=== PATIENT | female | born 1950 | race Caucasian/White ===

== ENCOUNTER 2017-08-02 06:17 | Day surgery (SDC) | payer OTHER ==
[2017-08-02 07:03] VITALS: BMI 30.2
[2017-08-02] MEDS ORDERED: Propofol 10 mg/ml Inj (20 ML) ONE ×2 (08:50→09:06)
[2017-08-02 10:18] VITALS: TEMP 96.8; O2SAT 100
[2017-08-02 10:19] VITALS: RESP 18
[2017-08-02 10:35] VITALS: BP 148/62; PULSE 70
== END 2017-08-02 10:30 | disposition home or self-care (01) ==
LOC: C.ENDO 06:17
PROVIDERS: ATTEND Internal Medicine
DX: Z12.11 Encounter for screening for malignant neoplasm of colon (principal); K62.1 Rectal polyp; K57.30 Diverticulosis of large intestine without perforation or abscess without bleeding; K64.8 Other hemorrhoids
CPT/HCPCS: 45380; 82948; 88305; J2001; J2704